=== PATIENT | male | born 1985 | race Caucasian/White ===

== ENCOUNTER 2016-10-13 11:23 | Emergency (ER) | payer SELFPAY ==
[~2016-10-13] VITALS: Ht 180.3 cm; Wt 96.0 kg
[2016-10-13 11:25] VITALS: BP 145/89
== END 2016-10-13 12:58 | disposition home or self-care (01) ==
LOC: ED 12:52
DX: S29.012A Strain of muscle and tendon of back wall of thorax, initial encounter (principal); S46.812A Strain of other muscles, fascia and tendons at shoulder and upper arm level, left arm, initial encounter; V43.52XA Car driver injured in collision with other type car in traffic accident, initial encounter; Y93.89 Activity, other specified; Y92.89 Other specified places as the place of occurrence of the external cause; Y99.8 Other external cause status
CPT/HCPCS: 99283